=== PATIENT | female | born 1960 | race Caucasian/White ===

== ENCOUNTER 2017-10-02 07:37 | Emergency (ER) | payer OTHER ==
[~2017-10-02] VITALS: Ht 175.3 cm; Wt 84.4 kg
[2017-10-02] MEDS ORDERED: LOSARTAN POTASS50 MG PO (08:25)
[2017-10-02] MEDS ORDERED: HYDROCHLOROTH12.5 M1 PO (08:25)
[2017-10-02] MEDS ORDERED: VIVELLE-DOT1 PATC1 TD (08:26)
[2017-10-02] MEDS ORDERED: PROGESTERONE100 MG PO (08:27)
[2017-10-02] MEDS ORDERED: DOXYCYCLINE HY100 MG PO (09:27)
== END 2017-10-02 09:41 | disposition home or self-care (01) ==
LOC: ED 07:37
DX: B34.9 Viral infection, unspecified (principal)
CPT/HCPCS: 81001; 85025; 99283